=== PATIENT | female | born 1985 | race Two or more races ===

== ENCOUNTER 2016-06-29 01:10 | Emergency (ER) | payer MEDICAID ==
[~2016-06-29] VITALS: Ht 165.1 cm; Wt 68.0 kg
[~2016-06-29 01:10] MED LIST: ADDERALL 10 MG10 MG ORAL; ALKA-SELTZER O1 EACH PO; CIPRO500 MG PO; CIPROFLOXACIN500 M2 ORAL; FLAGYL500 MG ORAL; FLUCONAZOLE100 MG ORAL; FLUCONAZOLE150 MG ORAL; IBUPROFEN PO; IBUPROFEN400 MG ORAL; METRONIDAZOLE500 MG PO; NKM; NORCO 10/3251 EA ORAL; PLAN B ONE-STE1.5 MG PO
--- NOTE | 2016-06-29 01:50 | Emergency Room Report ---
History of Present Illness General Chief Complaint: General Complaint Source: Patient Present Illness HPI Patient presents states that 2 days ago she was sexually active And does not want to get Denies any abdominal pain Denies any fevers or chills denies any chest pain or shortness of breath denies any back or flank pain She reports that she has a 15-year-old child And does not want to deal with it again Allergies: Coded Allergies: No Known Allergies (Verified , 06/29/16) Patient History Past Medical History: see triage record Pertinent Family History: none Last Menstrual Period: June 21, 2016 : 2 Para: 1 Reviewed Nursing Documentation: PMH: Agreed, PSxH: Agreed Nursing Documentation-PMH Past Medical History: No Stated History Hx Cancer: Yes - Cervical CA Hx Neurological Problems: No Review of Systems All Other Systems: negative except mentioned in HPI Physical Exam Vital Signs Date Time Temp Pulse Resp B/P Pulse Ox O2 Delivery O2 Flow Rate FiO2 06/29/16 01:15 98.6 100 20 127/81 100 Room Air Sp02 EP Interpretation: reviewed, normal General Appearance: well appearing, no apparent distress Head: normocephalic, atraumatic Eyes: bilateral eye EOMI, bilateral eye PERRL ENT: hearing grossly normal, normal pharynx, TMs + canals normal, uvula midline Neck: full range of motion, supple, no meningismus, no bony tend Respiratory: lungs clear, normal breath sounds, no rhonchi, no respiratory distress, no retraction, no accessory muscle use Cardiovascular #1: normal peripheral pulses, regular rate, rhythm, no edema, no gallop, no JVD, no murmur Gastrointestinal: normal bowel sounds, non tender, soft, no mass, no organomegaly, non-distended, no guarding, no hernia, no pulsatile mass, no rebound Musculoskeletal: normal inspection Neurologic: oriented x3, responsive, 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, motor strength/ tone normal, sensory intact Psychiatric: mood/affect normal Skin: normal color, no rash, warm/dry, palpation normal Lymphatic: normal inspection, no adenopathy Medical Decision Making Diagnostic Impression: Primary Impression: Encounter for generalized patient complaints Additional Impression: Contraception ER Course Patient had a tendency test performed which was negative Patient is fairly clear that her sexual encounter 2 days ago and requesting Plan B contraception Patient has been to the ER several times for similar complaints I did discuss with her the importance of appropriate outpatient followup That this does not cover any STD testing Patient was provided with a prescription And will have close outpatient follow Labs Test 06/29/16 01:30 Urine HCG, Qualitative Negative Last Vital Signs Date Time Temp Pulse Resp B/P Pulse Ox O2 Delivery O2 Flow Rate FiO2 06/29/16 01:15 98.6 100 20 127/81 100 Room Air Status: improved Disposition: HOME, SELF-CARE Condition: Improved Scripts Levonorgestrel (PLAN B ONE-STEP) 1.5 Mg Tablet 1.5 MG PO ONCE, #1 TAB Prov: VAISHALI MATHIS D.O. 06/29/16 Additional Instructions: Patient is provided with the discharge instructions notified to follow up with primary doctor in the next 2-3 days otherwise return to the er with any worsening symptoms. VAISHALI MATHIS D.O. Jun 29, 2016 01:50
[2016-06-29] MEDS ORDERED: PLAN B ONE-STE1.5 MG PO (02:02)
[2016-06-29 02:12] VITALS: BP 124/83
== END 2016-06-29 02:14 | disposition home or self-care (01) ==
LOC: EMR 01:45
DX: Z30.018 Encounter for initial prescription of other contraceptives (principal); Z85.41 Personal history of malignant neoplasm of cervix uteri
CPT/HCPCS: 81025; 99283

== ENCOUNTER 2016-10-10 14:25 | Emergency (ER) | payer MEDICAID ==
[~2016-10-10] VITALS: Ht 165.1 cm; Wt 68.0 kg
[2016-10-10] MEDS ORDERED: NKM (14:32)
[2016-10-10 14:52] LABS: APPEARANCE,URINE CLEAR; KETONES,URINE NEGATIVE (NEGATIVE); LEUKOCYTE ESTERASE ,URINE 1+ (NEGATIVE); NITRITE,URINE NEGATIVE (NEGATIVE); PH,URINE 5 (4.5-8.0); PROTEIN,URINE 1+ (NEGATIVE); UROBILINOGEN,URINE NORMAL MG/DL (0.0-1.0)
[2016-10-10] MEDS ORDERED: traMADol 50mg tab ORAL ONE (15:15)
[2016-10-10] MEDS ORDERED: Lidocaine 1% MPF 10mg/ml 5ml ONE (15:22)
[2016-10-10] MEDS ORDERED: Azithromycin 250mg tab ORAL ONE (15:30)
[2016-10-10 15:34] LABS: AMORPHOUS SEDIMENT,UR FEW /LPF; BACTERIA,URINE FEW /HPF; SQUAMOUS EPITHELIAL CELL,UR FEW /LPF (NONE/OCC)
[2016-10-10 16:00] VITALS: BP 110/70
[2016-10-10] MEDS ORDERED: Fluconazole 100mg tab ONE (16:18)
[2016-10-10 16:20] VITALS: BP 110/70
--- NOTE | 2016-10-12 14:27 | Emergency Room Report ---
History of Present Illness General Chief Complaint: Vaginal Source: Patient Present Illness HPI The patient is a 31-year-old female presenting for possible exposure to STD and white vaginal discharge for the past few days. Patient states that she recently began to have sexual activity with a male partner. Another female called the patient states that the male partner has a confirmed STD but is unsure of the name. The patient stopped having sexual activity with this male partner but states that she developed white vaginal discharge. She does admit to vaginal irritation and itching but denies dysuria, hematuria, abdominal pain , flank pain, increased urinary frequency, nausea, vomiting, fever Allergies: Coded Allergies: No Known Allergies (Verified , 06/29/16) Patient History Past Medical History: see triage record Pertinent Family History: none Last Menstrual Period: 09/21/2016 Now: No Reviewed Nursing Documentation: PMH: Agreed, PSxH: Agreed Nursing Documentation-PMH Past Medical History: No Stated History Hx Cancer: Yes - Cervical CA Hx Neurological Problems: No Review of Systems All Other Systems: negative except mentioned in HPI Physical Exam Vital Signs Date Time Temp Pulse Resp B/P Pulse Ox O2 Delivery O2 Flow Rate FiO2 10/10/16 14:29 98.2 91 16 116/79 99 Room Air Sp02 EP Interpretation: reviewed, normal General Appearance: no apparent distress, alert, GCS 15, non-toxic Head: normocephalic, atraumatic Eyes: bilateral eye PERRL, bilateral eye normal inspection ENT: hearing grossly normal, normal pharynx, no angioedema, normal voice Neck: full range of motion, supple/symm/no masses Respiratory: chest non-tender, lungs clear, normal breath sounds, speaking full sentences Gastrointestinal: normal bowel sounds, non tender, soft, non-distended, no guarding, no rebound Genitourinary: normal inspection, no CVA tenderness Musculoskeletal: back normal, gait/station normal, normal range of motion, non- tender, calf tenderness Neurologic: alert, oriented x3, responsive, motor strength/tone normal, sensory intact, speech normal Psychiatric: judgement/insight normal, memory normal, mood/affect normal, no suicidal/homicidal ideation Skin: normal color, no rash, warm/dry, well hydrated Lymphatic: no adenopathy Medical Decision Making PA Attestation Dr. Douglass is my supervising physician. Patient management was discussed with my supervising physician Diagnostic Impression: Primary Impression: Vaginal candidiasis Additional Impression: Possible exposure to STD ER Course The patient is a 31-year-old female presenting for possible exposure to STD and white vaginal discharge Differential diagnosis considered but not limited to: UTI, vaginitis, pyelonephritis, STD, vaginal candidiasis, PE: Vitals WNL. NAD. Abdomen: Normal appearance. Non distended. No ecchymosis. Normal BS. Non TTP. No McBurney point tenderness. No guarding. No CVA tenderness Urinalysis is not consistent with UTI. The patient is treated for STD due to exposure with Rocephin and azithromycin. She'll be discharged and treated for vaginal candidiasis. ER precautions are given and she will follow up with PMD Laboratory Tests Test 10/10/16 14:33 Urine Color Yellow Urine Appearance Clear Urine pH 5 (4.5-8.0) Urine Specific [place] 1.025 (1.005-1.035) Urine Protein 1+ (NEGATIVE) H Urine Glucose (UA) Negative (NEGATIVE) Urine Ketones Negative (NEGATIVE) Urine Occult Blood 4+ (NEGATIVE) H Urine Nitrite Negative (NEGATIVE) Urine Bilirubin Negative (NEGATIVE) Urine Urobilinogen Normal MG/DL (0.0-1.0) Urine Leukocyte Esterase 1+ (NEGATIVE) H Urine RBC 5-10 /HPF (0 - 2) H Urine WBC 2-4 /HPF (0 - 2) Urine Squamous Epithelial Cells Few /LPF (NONE/OCC) Urine Amorphous Sediment Few /LPF (NONE) H Urine Bacteria Few /HPF (NONE) Urine HCG, Qualitative Negative Lab Results Impression Not consistent with UTI. Neg preg Last Vital Signs Date Time Temp Pulse Resp B/P Pulse Ox O2 Delivery O2 Flow Rate FiO2 10/10/16 16:20 98.2 85 16 110/70 99 Room Air Status: improved Disposition: HOME, SELF-CARE Condition: Improved Patient Instructions: Sexually Transmitted Disease, Vaginitis Additional Instructions: I discussed my findings with the patient. All questions and concerns have been answered. Treatment and medication compliance have been addressed. I advised the patient that they need to follow up with PMD in 3-5 days. Return to ED if symptoms worsen, new symptoms arise, or if needed for any reason. Patient verbalized understanding of discharge instructions. MIKO GAY October 12, 2016 14:27
== END 2016-10-10 16:20 | disposition home or self-care (01) ==
LOC: EMR 14:48
DX: B37.3 Candidiasis of vulva and vagina (principal); Z20.2 Contact with and (suspected) exposure to infections with a predominantly sexual mode of transmission; Z85.41 Personal history of malignant neoplasm of cervix uteri
CPT/HCPCS: 81003; 81025; 96372; 99283; J0696; Q0144

== ENCOUNTER 2018-05-11 00:08 | Emergency (ER) | payer MEDICAID ==
[~2018-05-11] VITALS: Ht 165.1 cm; Wt 72.6 kg
[2018-05-11 00:55] VITALS: BP 127/85
[2018-05-11 01:07] VITALS: BP 127/85
[2018-05-11] MEDS ORDERED: PLAN B ONE-STE1.5 MG PO (01:10)
--- NOTE | 2018-05-11 05:10 | Emergency Room Report ---
History of Present Illness General Chief Complaint: General Complaint Source: Patient Present Illness HPI 33-year-old female presents ED for evaluation. States she had unprotected sexual intercourse last night. She is requesting the emergency pill. Denies any vaginal bleeding or discharge. Denies any abdominal pain nausea or vomiting. No other aggravating relieving factors. Denies any other associated symptoms Allergies: Coded Allergies: No Known Allergies (Verified , 06/29/16) Patient History Past Medical History: none Past Surgical History: none Pertinent Family History: none Social History: Denies: smoking, alcohol use, drug use Last Menstrual Period: 2 weeks ago Now: No Immunizations: UTD Reviewed Nursing Documentation: PMH: Agreed; PSxH: Agreed Nursing Documentation-PMH Past Medical History: No Stated History Hx Cancer: Yes - Cervical CA Hx Neurological Problems: No Review of Systems All Other Systems: negative except mentioned in HPI Physical Exam Vital Signs Date Time Temp Pulse Resp B/P (MAP) Pulse Ox O2 Delivery O2 Flow Rate FiO2 05/11/18 00:20 98.2 104 18 127/85 99 Room Air Sp02 EP Interpretation: reviewed, normal General Appearance: no apparent distress, alert, GCS 15, non-toxic Head: normocephalic, atraumatic Eyes: bilateral eye normal inspection, bilateral eye PERRL ENT: hearing grossly normal, normal pharynx, no angioedema, normal voice Neck: full range of motion, supple/symm/no masses Respiratory: chest non-tender, lungs clear, normal breath sounds, speaking full sentences Cardiovascular #1: regular rate, rhythm, no edema Cardiovascular #2: 2+ carotid (R), 2+ carotid (L), 2+ radial (R), 2+ radial (L) , 2+ dorsalis pedis (R), 2+ dorsalis pedis (L) Gastrointestinal: normal bowel sounds, non tender, soft, non-distended, no guarding, no rebound Rectal: deferred Genitourinary: normal inspection, no CVA tenderness Musculoskeletal: back normal, gait/station normal, normal range of motion, non- tender Neurologic: alert, oriented x3, responsive, motor strength/tone normal, sensory intact, speech normal Psychiatric: judgement/insight normal, memory normal, mood/affect normal, no suicidal/homicidal ideation Reflexes: 3+ bicep (R), 3+ bicep (L), 3+ tricep (R), 3+ tricep (L), 3+ knee (R) , 3+ knee (L) Skin: normal color, no rash, warm/dry, well hydrated Lymphatic: no adenopathy Medical Decision Making Diagnostic Impression: Primary Impression: Contraception Qualified Codes: Z30.9 - Encounter for contraceptive management, unspecified ER Course Hospital Course 33-year-old female requesting emergency pill. h/o unprotected sex Differential diagnoses include: trichimonas, gonorrhea, chlamydia Clinical course Patient placed on stretcher. After initial history physical exam reveals a female in no acute distress. Physical exam unremarkable. Patient declines treatment for presumed STD. Requesting "Plan B" pill. I agree to provide her with prescription. She states she will follow-up with her PMD Diagnosis - contraception Stable and discharged home with prescriptions for Rx Plan B. Instructed to followup with PMD. Return to ED if symptoms recur or worsen Last Vital Signs Date Time Temp Pulse Resp B/P (MAP) Pulse Ox O2 Delivery O2 Flow Rate FiO2 05/11/18 01:07 98.2 67 18 127/85 99 Room Air 67 Status: improved Disposition: HOME, SELF-CARE Condition: Stable Scripts Levonorgestrel (PLAN B ONE-STEP) 1.5 Mg Tablet 1.5 MG PO ONCE, #1 TAB Prov: Vic Douglass MD 05/11/18 Referrals: NON PHYSICIAN (PCP) Patient Instructions: Contraception Choices, [id number] Vic Douglass MD May 11, 2018 05:10
== END 2018-05-11 02:00 | disposition home or self-care (01) ==
LOC: EMR 01:31
DX: Z30.012 Encounter for prescription of emergency contraception (principal)
CPT/HCPCS: 99282

== ENCOUNTER 2018-06-17 00:41 | Emergency (ER) | payer MEDICAID ==
[~2018-06-17] VITALS: Ht 165.1 cm; Wt 70.3 kg
--- NOTE | 2018-06-17 00:50 | NUR ---
ED Nurse Note: Pt presents to the ED with c/o white vag discharge for two days, burning when urinates. AO4. NAD. VSS.
--- NOTE | 2018-06-17 00:57 | NUR ---
ED Nurse Note: ERMD at bedside for pelvic exam. Wet mound and urine collected; sent down to lab.
[2018-06-17 01:31] VITALS: BP 122/82
[2018-06-17 01:31] LABS: APPEARANCE,URINE CLOUDY; BILIRUBIN, URINE NEGATIVE (NEGATIVE); GLUCOSE, URINE (UA) NEGATIVE (NEGATIVE); KETONES,URINE NEGATIVE (NEGATIVE); LEUKOCYTE ESTERASE ,URINE 2+ (NEGATIVE); NITRITE,URINE POSITIVE (NEGATIVE); PH,URINE 5 (4.5-8.0); PROTEIN,URINE 1+ (NEGATIVE); UROBILINOGEN,URINE 1 MG/DL (0.0-1.0)
[2018-06-17] MEDS ORDERED: METROGEL-VAGINA70 G1 VAGIN (01:51)
[2018-06-17 01:52] LABS: COLOR,URINE YELLOW
--- NOTE | 2018-06-17 01:52 | Emergency Room Report ---
History of Present Illness General Chief Complaint: Vaginal Source: Patient Present Illness HPI Is a 33-year-old female with no past medical history. She came in with chief point of vaginal discharge. She thinks she has a yeast infection. Onset for last 3 days. Itching. Does have increased urination. No nausea no vomiting no fever chills. Is sexually active. No other complaint. Allergies: Coded Allergies: No Known Allergies (Verified , 06/29/16) Patient History Past Medical History: see triage record, old chart reviewed Past Surgical History: none Pertinent Family History: none Social History: Denies: smoking Last Menstrual Period: 05/27/18 Now: No Immunizations: other Reviewed Nursing Documentation: PMH: Agreed; PSxH: Agreed Nursing Documentation-PMH Past Medical History: No Stated History Hx Cancer: Yes - Cervical CA Hx Neurological Problems: No Review of Systems Eye: Denies: eye pain, blurred vision ENT: Denies: ear pain, nose congestion, throat swelling Respiratory: Denies: cough, shortness of breath Cardiovascular: Denies: chest pain, palpitations Gastrointestinal: Denies: abdominal pain, diarrhea, nausea, vomiting Genitourinary: Reports: discharge, dysuria Musculoskeletal: Denies: back pain, joint pain Skin: Denies: rash Neurological: Denies: headache, numbness Endocrine: Denies: increased thirst, increased urine Hematologic/Lymphatic: Denies: easy bruising All Other Systems: negative except mentioned in HPI Physical Exam Vital Signs Date Time Temp Pulse Resp B/P (MAP) Pulse Ox O2 Delivery O2 Flow Rate FiO2 06/17/18 00:45 98.1 94 16 122/82 100 Room Air vitals normal Sp02 EP Interpretation: reviewed, normal General Appearance: well appearing, no apparent distress, alert Head: normocephalic, atraumatic Eyes: bilateral eye PERRL, bilateral eye EOMI ENT: hearing grossly normal, normal pharynx Neck: full range of motion, supple, no meningismus Respiratory: chest non-tender, lungs clear, normal breath sounds Cardiovascular #1: regular rate, rhythm, no murmur Gastrointestinal: normal bowel sounds, non tender, no mass, no organomegaly, no bruit, non-distended Genitourinary: other - Pelvic exam done with female nurse as adolescent counselor. External exam normal. Internal exam with whitish discharge. No cervical motion tenderness. No adnexal tenderness. Musculoskeletal: back normal, gait/station normal, normal range of motion Neurologic: alert, oriented x3 Psychiatric: mood/affect normal Skin: warm/dry Medical Decision Making Diagnostic Impression: Primary Impression: Vaginitis Qualified Codes: N76.0 - Acute vaginitis Additional Impression: UTI (urinary tract infection) Qualified Codes: N30.00 - Acute cystitis without hematuria ER Course Patient with vaginal discharge. She has UTI and cris. We'll go ahead and put on antibiotics. No evidence of ectopic. Last Vital Signs Date Time Temp Pulse Resp B/P (MAP) Pulse Ox O2 Delivery O2 Flow Rate FiO2 06/17/18 01:31 98.1 96 16 122/82 100 Room Air Status: unchanged Disposition: HOME, SELF-CARE Condition: Stable Scripts Cephalexin* (KEFLEX*) 500 Mg Capsule 500 MG ORAL TID, #21 CAP Prov: Aramis Geller MD 06/17/18 Metronidazole* (METROGEL-VAGINAL*) 70 Gm Gel.w.appl 1 APPL VAGIN BEDTIME, #7 GM Prov: Aramis Geller MD 06/17/18 Referrals: [facility],REFERRING (PCP) Additional Instructions: follow-up your doctor in 7 days. Return if worse. Aramis Geller MD Jun 17, 2018 01:52
[2018-06-17] MEDS ORDERED: CEPHALEXIN500 MG ORAL (01:53)
[2018-06-17 02:01] VITALS: BP 122/82
--- NOTE | 2018-06-17 02:01 | NUR ---
ED Nurse Note: Patient cleared for discharge per ERMD. AO4. NAD. VSS. Patient given prescriptions and discharge instructions; verbalized understanding. ID band removed. Patient ambulated out with all personal belongings with steady gait.
[2018-06-18] MEDS ORDERED: FLUCONAZOLE100 MG ORAL (13:54)
== END 2018-06-17 02:00 | disposition home or self-care (01) ==
LOC: EMR 01:01
DX: N76.0 Acute vaginitis (principal); N39.0 Urinary tract infection, site not specified; Z85.41 Personal history of malignant neoplasm of cervix uteri
CPT/HCPCS: 81003; 81025; 87086; 87181; 87210; 99283

== ENCOUNTER 2018-06-18 12:59 | Emergency (ER) | payer MEDICAID ==
[~2018-06-18] VITALS: Ht 165.1 cm; Wt 70.3 kg
[~2018-06-18 12:59] MED LIST changes: +CEPHALEXIN500 MG ORAL; +METROGEL-VAGINA70 G1 VAGIN
[2018-06-18 13:13] VITALS: BP 128/89
--- NOTE | 2018-06-18 13:13 | NUR ---
ED Nurse Note: Pt states being here yesterday and was give med for yeast infection and would like to have it changed. Also would like to be checked for STI, patient si alert and oriented x4, ambulatory with a steady gait, VSS
[2018-06-18] MEDS ORDERED: Lidocaine 1% MPF 10mg/ml 5ml INJ ONE (13:30)
[2018-06-18] MEDS ORDERED: Azithromycin 250mg tab ORAL ONE (13:30)
--- NOTE | 2018-06-18 13:52 | Emergency Room Report ---
History of Present Illness General Chief Complaint: Female Urogenital Problems Source: Patient Present Illness HPI 33-year-old female presents to the emergency department with 2 complaints, first complaint is recent exposure to venereal disease and is requesting treatment. Patient reports itchy vaginal discharge. She also states that she just completed course of antibiotics for bacterial vaginosis that she was just seen last week and had testing done which came back positive a bacterial vaginosis. Patient is requesting medication for use she states she has significant itching in the genital area. Patient denies any genital lesions, swollen tender lymph nodes, abdominal pain, nausea or vomiting. She denies and denies suspicion of possible . Patient denies fevers, chills, urinary frequency, urgency, dysuria or hematuria. She states that she recently just had testing and UA performed and does not need repeat. Denies any aggravating or relieving factors. Denies pain at this time. Allergies: Coded Allergies: No Known Allergies (Verified , 06/29/16) Patient History Past Medical History: see triage record Past Surgical History: none Pertinent Family History: none Last Menstrual Period: 05/26/18 Now: No : 2 Para: 1 Immunizations: UTD Reviewed Nursing Documentation: PMH: Agreed; PSxH: Agreed Nursing Documentation-PMH Past Medical History: No Stated History Hx Cancer: Yes - Cervical CA Hx Neurological Problems: No Review of Systems All Other Systems: negative except mentioned in HPI Physical Exam Vital Signs Date Time Temp Pulse Resp B/P (MAP) Pulse Ox O2 Delivery O2 Flow Rate FiO2 06/18/18 13:05 98.1 96 18 128/89 100 Sp02 EP Interpretation: reviewed, normal General Appearance: no apparent distress, alert, GCS 15, non-toxic Head: normocephalic, atraumatic Eyes: bilateral eye normal inspection, bilateral eye PERRL ENT: hearing grossly normal, normal voice Neck: full range of motion Respiratory: lungs clear, normal breath sounds, speaking full sentences Cardiovascular #1: regular rate, rhythm Gastrointestinal: normal bowel sounds, non tender, soft, non-distended, no guarding Rectal: deferred Genitourinary: normal inspection, no CVA tenderness, adnexa normal, deferred - genital exam deferred by pt. as just had exam and testing performed last week. Musculoskeletal: back normal, gait/station normal, normal range of motion, non- tender Neurologic: alert, oriented x3, responsive, motor strength/tone normal, sensory intact, normal gait, speech normal, grossly normal Psychiatric: judgement/insight normal Skin: normal color, no rash, warm/dry, well hydrated Lymphatic: no adenopathy Medical Decision Making PA Attestation Dr. Kinney is my supervising Physician whom patient management has been discussed with. Diagnostic Impression: Primary Impression: Contact with or exposure to venereal diseases Additional Impression: Yeast vaginitis ER Course 33-year-old female presents to the emergency department with 2 complaints, first complaint is recent exposure to venereal disease and is requesting treatment. Patient reports itchy vaginal discharge. She also states that she just completed course of antibiotics for bacterial vaginosis that she was just seen last week and had testing done which came back positive a bacterial vaginosis. Patient is requesting medication for use she states she has significant itching in the genital area. Patient denies any genital lesions, swollen tender lymph nodes, abdominal pain, nausea or vomiting. She denies and denies suspicion of possible . Patient denies fevers, chills, urinary frequency, urgency, dysuria or hematuria. She states that she recently just had testing and UA performed and does not need repeat. Denies any aggravating or relieving factors. Denies pain at this time. Ddx considered but are not limited to UTi , STI, G & C, trichomonas, Vaginitis , cervicitis, bartholins gland cyst or cellulitis. Vital signs: are WNL, pt. is afebrile H&PE are most consistent with vaginitis-- yeast most likely secondary to recent completion of Abx. Pt. also candidate for prophylactic tx for STD's. ORDERS: - None at this time ED INTERVENTIONS: -250mg Rocephin IM -1 Gram Azithromycin DISCHARGE: At this time pt. is stable for d/c to home. Will provide printed patient care instructions, and any necessary prescriptions. Care plan and follow up instructions have been discussed with the patient prior to discharge. Last Vital Signs Date Time Temp Pulse Resp B/P (MAP) Pulse Ox O2 Delivery O2 Flow Rate FiO2 06/18/18 13:13 98.1 79 18 128/89 100 Disposition: HOME, SELF-CARE Condition: Stable Referrals: NON PHYSICIAN (PCP) Patient Instructions: Vaginal Yeast Infection, Adult Additional Instructions: Take medications as directed. MAKE SURE YOUR PARTNERS GET TREATED WITH ANTIBIOTICS to prevent becoming re- infected No intercourse for 7-10 days, as you are infectious and can spread the bacterial infection. Follow up with PCP in 3-5 days Return sooner to ED if new symptoms occur, or current symptoms become Evy Delarosa Jun 18, 2018 13:52
[2018-06-18] MEDS ORDERED: FLUCONAZOLE100 MG ORAL (13:54)
[2018-06-18 14:00] VITALS: BP 122/85
--- NOTE | 2018-06-18 14:00 | NUR ---
ED Nurse Note: Pt cleared by health care provider for discharge. ACI given and explained to pt and verbalized understanding. All medical devices such as ID band removed. Pt left with all personal belongings. Pt is AAO x4 and ambulates with steady gait.
== END 2018-06-18 14:00 | disposition home or self-care (01) ==
LOC: EMR 13:30
DX: B37.3 Candidiasis of vulva and vagina (principal); Z20.2 Contact with and (suspected) exposure to infections with a predominantly sexual mode of transmission; Z85.41 Personal history of malignant neoplasm of cervix uteri
CPT/HCPCS: 96372; 96374; 99284; J0696; Q0144

== ENCOUNTER 2019-04-08 18:13 | Emergency (ER) | payer MEDICAID ==
[~2019-04-08] VITALS: Ht 167.6 cm; Wt 79.4 kg
[2019-04-08 18:25] VITALS: BP 110/74
--- NOTE | 2019-04-08 20:00 | NUR ---
ED Nurse Note: pt presents to ed with L sided neck and ear px x1 week. pt states that the pain started in her ear and spread to her L neck which is now swollen with a sore throat. pt reports a 5/10 pain that she took ibuprofen for without any relief of symptoms.
--- NOTE | 2019-04-08 20:01 | NUR ---
ED Nurse Note: redness, swelling and white lesions visualized on L tonsil
--- NOTE | 2019-04-08 20:29 | Emergency Room Report ---
History of Present Illness General Chief Complaint: Earache Source: Patient Present Illness HPI States that for the past week she has had sore throat and painful swallowing. She states that she also noted some swelling on the left side of her throat. She denies fever chills. She denies nausea or vomiting. She denies chest pain or shortness of breath. She denies headache or neck pain. She denies blurry vision. She has no other combines. Allergies: Coded Allergies: No Known Allergies (Verified , 06/29/16) Patient History Past Medical History: none Social History: Denies: smoking, alcohol use, drug use Last Menstrual Period: Now: No Reviewed Nursing Documentation: PMH: Agreed; PSxH: Agreed Nursing Documentation-PMH Past Medical History: No History, Except For Hx Cancer: Yes - Cervical CA Hx Neurological Problems: No Review of Systems All Other Systems: negative except mentioned in HPI Physical Exam Vital Signs Date Time Temp Pulse Resp B/P (MAP) Pulse Ox O2 Delivery O2 Flow Rate FiO2 04/08/19 18:20 99.0 103 18 110/74 (86) 98 Room Air Sp02 EP Interpretation: reviewed, normal General Appearance: no apparent distress, alert, GCS 15, non-toxic Head: normocephalic, atraumatic Eyes: bilateral eye normal inspection, bilateral eye PERRL ENT: hearing grossly normal, no angioedema, normal voice, TMs + canals normal, uvula midline, moist mucus membranes, pharyngeal erythema, tonsillar exudate Neck: full range of motion, supple/symm/no masses Respiratory: chest non-tender, lungs clear, normal breath sounds, no respiratory distress, no retraction, no accessory muscle use, speaking full sentences Cardiovascular #1: regular rate, rhythm, no edema Gastrointestinal: normal inspection Rectal: deferred Musculoskeletal: back normal, gait/station normal, normal range of motion Neurologic: alert, oriented x3, responsive, motor strength/tone normal, sensory intact, speech normal Psychiatric: judgement/insight normal, memory normal, mood/affect normal, no suicidal/homicidal ideation Skin: no rash, normal color Lymphatic: adenopathy - L. anterior cervical EMELYN Medical Decision Making Diagnostic Impression: Primary Impression: Pharyngitis Additional Impression: Acute bacterial tonsillitis ER Course This patient has a clinical presentation consistent with strep pharyngitis. Physical exam is consistent with a bacterial etiology. There is no evidence of peritonsillar abscess or deep neck abscess. There is no airway edema. Overall , this patient had a very benign examination. She does have anterior cervical lymphadenopathy. The patient is instructed to get [id number] lozenges. I will also give the patient Motrin as a pain medication and anti-inflammatory. I will also treat the patient with a course of antibiotics. Patient was given supportive care instructions. The patient was given return precautions and followup instructions. Last Vital Signs Date Time Temp Pulse Resp B/P (MAP) Pulse Ox O2 Delivery O2 Flow Rate FiO2 04/08/19 18:20 99.0 103 18 110/74 (86) 98 Room Air Status: improved Disposition: HOME, SELF-CARE Condition: Improved Kenyetta Kinney DO Apr 08, 2019 20:29
[2019-04-08] MEDS ORDERED: AUGMENTIN 875-1 EAC1 ORAL (20:31)
[2019-04-08 20:43] VITALS: BP 125/96
== END 2019-04-08 20:43 | disposition home or self-care (01) ==
LOC: EMR 18:49
DX: J02.9 Acute pharyngitis, unspecified (principal); J03.90 Acute tonsillitis, unspecified; Z85.41 Personal history of malignant neoplasm of cervix uteri
CPT/HCPCS: 99282

== ENCOUNTER 2019-12-11 19:50 | Emergency (ER) | payer MEDICAID ==
[~2019-12-11 19:50] MED LIST changes: +AUGMENTIN 875-1 EAC1 ORAL
[2019-12-11] MEDS ORDERED: Lidocaine 1% MPF 10mg/ml 5ml INJ ONE (20:15)
[2019-12-11] MEDS ORDERED: Azithromycin 250mg tab ORAL ONE (20:15)
== END 2019-12-11 20:35 | disposition home or self-care (01) ==
DX: Z20.2 Contact with and (suspected) exposure to infections with a predominantly sexual mode of transmission (principal); Z85.41 Personal history of malignant neoplasm of cervix uteri
CPT/HCPCS: 96372; J0696; Q0144; Z7502

== ENCOUNTER 2019-12-20 05:47 | Emergency (ER) | payer MEDICAID ==
[~2019-12-20] VITALS: Ht 165.1 cm; Wt 79.4 kg
[2019-12-20 06:01] VITALS: BP 128/87
--- NOTE | 2019-12-20 06:02 | NUR ---
Nurse Note: Pt walked in c/o wanting azithromycin. Per pt, pt was in ED for possible STD, was DCed but vomited. Pt stated she "threw up the pills and was not effective". Pt stated she is sexually active but no painful or burning while urinating.
--- NOTE | 2019-12-20 06:13 | Emergency Room Report ---
History of Present Illness General Chief Complaint: Medication Refill Present Illness HPI Patient is a 34-year-old female presents after increased reported recent exposure to sexual transmitted disease. She states she was recently exposed to chlamydia. She states her boyfriend had recently been diagnosed. Reports having recent intercourse with him. States that she wants to be retreated for chlamydia again. Denies any fever. Denies any vomiting. She states that she told this to the nurse because she did not want her to know that she had reexposed herself. Allergies: Coded Allergies: No Known Allergies (Verified , 06/29/16) COVID-19 Screening Contact w/high risk pt: No Experienced COVID-19 symptoms?: No COVID-19 Testing performed DEPUTY ADMINISTRATOR: No Patient History Past Medical History: see triage record Last Menstrual Period: 11/2019 Reviewed Nursing Documentation: PMH: Agreed; PSxH: Agreed Nursing Documentation-PMH Hx Cancer: Yes - Cervical CA Hx Neurological Problems: No Review of Systems All Other Systems: negative except mentioned in HPI Physical Exam Vital Signs Date Time Temp Pulse Resp B/P (MAP) Pulse Ox O2 Delivery O2 Flow Rate FiO2 12/20/19 05:50 98.6 87 16 128/87 (101) 99 Room Air Sp02 EP Interpretation: reviewed, normal General Appearance: normal inspection, well appearing, no apparent distress, alert, GCS 15 Head: atraumatic ENT: normal ENT inspection, hearing grossly normal, normal voice Neck: normal inspection, full range of motion, supple, no bony tend Respiratory: normal inspection, lungs clear, normal breath sounds, no respiratory distress, no retraction, no wheezing Cardiovascular #1: regular rate, rhythm, no edema Gastrointestinal: normal inspection, normal bowel sounds, non tender, soft, no guarding, no hernia Genitourinary: no CVA tenderness Musculoskeletal: normal inspection, back normal, normal range of motion Neurologic: alert, motor strength/tone normal, tungsten tender III-XII nml as tested, oriented x3, responsive, speech normal, normal inspection Psychiatric: normal inspection, judgement/insight normal, mood/affect normal Medical Decision Making Diagnostic Impression: Primary Impression: Possible exposure to STD ER Course Patient presented for STD exposure. Differential diagnosis include was not limited to chlamydia exposure, among others. Patient be given a repeat dose of azithromycin. Patient does not appear to have any evidence of systemic toxicity. She has a benign overall exam. She appears to be stable for discharge. Patient was advised outpatient follow-up with her physician to reassess for clearance. She is advised to return if worse. The patient is advised to follow up with primary care doctor in 2-3 days. Patient is advised to return if any worsening condition or if any changes in status that are concerning. This report is dictated with [employer] printed forms proofreader software which may occasionally lead to discrepancies related to use of this software. Last Vital Signs Date Time Temp Pulse Resp B/P (MAP) Pulse Ox O2 Delivery O2 Flow Rate FiO2 12/20/19 06:01 98.6 88 16 128/87 99 Room Air Status: improved Disposition: HOME, SELF-CARE Condition: Stable Referrals: [facility]ERR[facility] (PCP) Cesar Cuevas MD Dec 20, 2019 06:13
[2019-12-20] MEDS ORDERED: Azithromycin 250mg tab ORAL ONE (06:15)
[2019-12-20 06:32] VITALS: BP 124/76
--- NOTE | 2019-12-20 06:32 | NUR ---
ER DISCHARGE NOTE: Patient is cleared to be discharged per ERMD, pt is aox4, on room air, with stable vital signs. pt was given dc and prescription instructions, pt was able to verbalize understanding, pt id band removed. pt is able to ambulate with steady gait. pt took all belongings.
== END 2019-12-20 06:33 | disposition home or self-care (01) ==
LOC: EMR 06:06
DX: Z20.2 Contact with and (suspected) exposure to infections with a predominantly sexual mode of transmission (principal); Z85.41 Personal history of malignant neoplasm of cervix uteri
CPT/HCPCS: Q0144; Z7502; 99282